=== PATIENT | male | born 1980 | race American Indian/Alaskan Native ===

== ENCOUNTER 2019-04-20 14:46 | Emergency (ER) | payer OTHER ==
[2019-04-20 17:09] VITALS: BP 139/88
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
== END 2019-04-20 19:55 | disposition left against medical advice (07) ==
LOC: ED 14:46
DX: R10.9 Unspecified abdominal pain (principal); Z53.21 Procedure and treatment not carried out due to patient leaving prior to being seen by health care provider